=== PATIENT | female | born 1955 | race Caucasian/White ===

== ENCOUNTER 2018-12-02 05:39 | Inpatient (IN) | payer OTHER ==
[2018-11-15 13:13] LABS: HEMOGLOBIN 14.5 gm/dL (12.0-15.0); MCH 31.8 pg (26.0-34.0); MCHC 33.8 g/dL (28.0-37.0); MCV 94.1 fL (80.0-100.0); RBC 4.56 mil/uL (4.20-5.00); RDW 13.2 % (10.5-14.5); WBC 8.1 thou/uL (4.0-11.0)
[2018-11-15 13:21] LABS: URINE BILIRUBIN NEGATIVE (Negative); URINE BLOOD NEGATIVE (Negative); URINE CLARITY CLEAR; URINE COLOR YELLOW; URINE GLUCOSE-RANDOM* NEGATIVE (Negative); URINE KETONES NEGATIVE (Negative); URINE LEUKOCYTES-REFLEX NEGATIVE (Negative); URINE NITRITE-REFLEX NEGATIVE (Negative); URINE PROTEIN (DIPSTICK) NEGATIVE (Negative); URINE UROBILINOGEN 0.2 E.U./dl (0.2-1.0)
[2018-11-15 13:28] LABS: ALBUMIN 4.1 g/dL (3.4-5.0); CREATININE 0.8 mg/dL (0.6-1.0); POTASSIUM 4.5 mmol/L (3.5-5.1)
[2018-11-15 13:29] LABS: PROTIME 10.6 Seconds (9.3-11.4)
[2018-12-02] VITALS (17 sets, daily range): BP systolic 109–135; BP diastolic 61–76
[~2018-12-02] VITALS: Ht 162.6 cm; Wt 71.7 kg
[~2018-12-02 05:39] MED LIST: ASHWAGANDA PO; FISH OIL 1,0001 EAC1 PO; GLUCOSAMINE &1 EACH PO; TURMERIC500 M2 PO
--- NOTE | 2018-12-02 09:37 | O ---
[facility] [place] [address] OPERATIVE REPORT Name: ION VU Room #: 150-2 ADM IN M.R.#: [id number] Admission: 12/02/18 ������������������ Attend Phys: Kirby Arciniega MD Discharge: ������������������ Date of : 57 Report #: [id number] THIS REPORT FOR: //name// CC: SALLIE Arciniega Physician staff DATE OF SERVICE: 12/02/2018 PREOPERATIVE DIAGNOSIS: End-stage degenerative osteoarthritis, left knee. POSTOPERATIVE DIAGNOSIS: End-stage degenerative osteoarthritis, left knee. PROCEDURE: Left total knee arthroplasty. SURGEON: Kirby Arciniega M.D. INDICATIONS: This slender, healthy, active 63-year-old female has had multiple problems with the left knee in the past. She has had several surgical procedures with previous ACL reconstruction and arthroscopic debridement. 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 She has elected to go ahead with total knee replacement. DESCRIPTION OF PROCEDURE: The patient was taken to the operating room where she was placed under general anesthesia. Prophylactic intravenous antibiotics were administered. The left knee and leg were meticulously prepped and draped. A thigh tourniquet was applied and inflated to 300 mmHg. An anterior longitudinal skin incision was made. This was made through her old surgical scar, which was somewhat anterior lateral than midline. I did not feel that a new incision line near this would be seymour as I was concerned about blood supply and possible skin and tissue necrosis. This new skin incision in line with the old scar was still satisfactory and allowed adequate exposure. A medial parapatellar incision was made and the patella was reflected laterally. Marked degenerative change in all 3 compartments was noted. The Arias and Nephew knee system was utilized. Intramedullary guides were used on both the femur and the tibia. The femur was cut in 5 degrees of valgus and the tibia cut perpendicular to long axis of the bone, which allowed correction of the significant preoperative varus malalignment. The femur seemed best suited for a size 5 femoral component. The tibia was also best suited for a size 5 tibial component. A trial reduction using a 9 mm polyethylene insert resulted in good improvement in overall alignment and satisfactory range of motion and stability with full knee extension and flexion beyond 140 degrees. The patellar surface was resected and a 35 mm patellar button fit nicely with appropriate anchor holes created. The patella seemed to track nicely and appeared to be stable. The trial components were removed. The intramedullary canal was blocked with a [facility] [address] [address] OPERATIVE REPORT Name: ION VU Room #: 150-2 [facility]#: [id number] Admission: 12/02/18 ������������������ Attend Phys: Kirby Arciniega MD Discharge: ������������������ Date of : 57 Report #: [id number] bone block on both the femoral and tibial sides. She does have rather significant osteopenia and I felt cement technique on all three components would be necessary. The surfaces were thoroughly irrigated and dried. Methyl methacrylate cement was injected into the porous surface of the tibia. The Arias and Nephew size 5, Karen II, left nonporous tibial base plate was then inserted. This was impacted into position and seated nicely and appeared to be secure. Excess cement was removed from its margin. The 9 mm size 5 Legion cruciate retaining polyethylene liner was inserted and snapped into place. It seated nicely and appeared to be secure. The size 5 left cruciate retaining Legion femoral component was then inserted. Cement was used at the distal aspect at the anchor holes where the bone is quite soft. The component seemed to seat nicely and appeared to be secure. Excess cement was removed from around its margin. A 35 mm patellar button was inserted and secured with methyl methacrylate and appropriate anchor holes using a patellar clamp until the cement had hardened. Once the cement was firm, alignment, range of motion and stability were once again assessed and felt to be satisfactory. The knee demonstrated full knee extension and flexion to about 140 degrees. The patella tracked nicely and appears to be stable. The tourniquet was deflated after a total tourniquet time of 51 minutes. A single Hemovac was left in the wound exiting through a separate stab incision. The fascia was closed with multiple #1 Vicryl sutures. The very limited subcutaneous tissues were reapproximated with 0 Monocryl. The skin was closed with skin inés. A sterile dressing was applied. The patient was awakened and returned to recovery room in good condition. ��������������������������������������������� <ELECTRONICALLY SIGNED> ���������������������������������������� By: Kirby Arciniega MD ��������������������������������������������� 12/02/18 0937 [id number] Kirby Arciniega MD /nt
--- NOTE | 2018-12-02 15:21 | NUR ---
PT ADMITTED RELATED TO LT TOTAL KNEE REPLACEMENT. CM REVIEWED CHART AND SPOKE WITH CARE TEAM. CM MET WITH PT AT BEDSIDE THIS DAY. PT IS A&O X4. CM ROLE INTRODUCED. PT INDICATED SHE LIVES IN A HOUSE ALONE WITH 3 STEPS TO ENTER AND NO STEPS INSIDE. PT INDICATED SHE HAD BEEN INDEPEDNENT WITH GAIT AND ADLS VP PLATFORMS. PT INDICATED SHE HAS A FWW FOR HOME USE. PT INDICATED SHE HADN'T SPOKEN ABOUT HH VS. OP PT UPON DC YET. CM TO FOLLOW INDICATED WITH DC PLANNING.
--- NOTE | 2018-12-02 19:23 | NUR ---
ASSUMED CARE OF PATIENT APPROX. 1100, PT A&OX4, VSS, PAIN AT 8 AT HIGHEST IN LEFT KNEE. PT POST OP LEFT KNEE REPLACEMENT. PT VOIDED TODAY, HAS TOLERATED REGULAR DIET. PT HAS HEMOVAC, 200MS TAKEN OFF. NO SIGNS OF DISTRESS, FALL BUNDLE IN PLACE. WILL CONTINUE TO MONITOR.
[2018-12-03 04:23] VITALS: BP 105/64
[2018-12-03 05:38] LABS: HEMATOCRIT 30.2 % (37.0-47.0); HEMOGLOBIN 10.4 gm/dL (12.0-15.0); MCH 32.4 pg (26.0-34.0); MCHC 34.5 g/dL (28.0-37.0); MCV 93.9 fL (80.0-100.0); PLATELET COUNT 241 thou/uL (150-400); RBC 3.22 mil/uL (4.20-5.00); RDW 13.6 % (10.5-14.5); WBC 10.6 thou/uL (4.0-11.0)
--- NOTE | 2018-12-03 05:39 | NUR ---
Assumed care at 1845. Pt resting in bed. AOX4. VSS. Left knee dressing CDI. Emptied 250ml from Hemovac. Bilateral marly hose in place. Bupivacan auto infuser in place on left lower abdmn. Pt has been using bed brown. Hasnt worked with PT as of yet. IV on left FA with 1/2 NS @100. No identified needs at the moment. Will continue to monitor.
[2018-12-03 05:54] LABS: CALCIUM 8.2 mg/dL (8.5-10.1); CREATININE 0.8 mg/dL (0.6-1.0); MAGNESIUM 1.9 mg/dL (1.8-2.4); POTASSIUM 4.4 mmol/L (3.5-5.1)
[2018-12-03 07:22] VITALS: BP 100/52
[2018-12-03 07:43] LABS: ABSOLUTE NEUTROPHILS 7.7 thou/uL (1.4-8.2)
[2018-12-03 14:12] VITALS: BP 99/45
--- NOTE | 2018-12-03 16:17 | NUR ---
CARE TEAM INDICATED THAT PT IS MEDICALLY STABLE TO DISCHARGE HOME THIS DAY. PT HAD FWW FOR USE UPON DC. PT IS TO DO OP PT. NO OTHER CM INTERVENTION INDICATED AT THIS TIME. CASE CLOSED.
[2018-12-03 18:33] VITALS: BP 99/45
--- NOTE | 2018-12-03 19:36 | NUR ---
PT DISCHARGED HOME. PT A&OX4, VSS, PAIN IN LEFT KNEE MANAGED WITH MEDICATION. PT ABLE TO AMBULATE WITH STEADY GAIT WITH PHYSICAL THERAPY. HEMOVAC AND ON QUE PUMP DISCONTINUED PER ORDER. PATIENT HAS GRACIE DRESSING, THE SUCTION DEVICE CAME OFF, THIS NURSE RECIEVED INSTRUCTIONS FROM DOCTOR TO KEEP DRESSING IN PLACE. PT WENT HOME WITH JEREMY KHAN. PT AWARE TO WATCH FOR EXCESSIVE BLEEDING AND TO COME BACK IF SO. IV HAS BEEN REMOVED. PT IS AWARE TO FOLLOW UP WITH DOCTOR, CHANGE DRESSING DAILY, AND PRESCIPTION INFORMATION. NO SIGNS OF DISTRESS. DRESSING STILL INTACT ON KNEE. ALL BELONGINGS WITH PATIENT.
== END 2018-12-03 18:00 | disposition home or self-care (01) | DRG 470 ==
LOC: PRE 05:39 → TBA 05:52 → 4W 05:52 → PRE 10:33 → 4W 10:34 → PRE 10:46 → 4W 12-03 18:00
PROVIDERS: Nurse Practitioner; ADMIT Orthopaedic Surgery
PROC: 0SRD0J9 Replacement of Left Knee Joint with Synthetic Substitute, Cemented, Open Approach (ICD-10-PCS; principal; 2018-12-02)
DX: M17.12 Unilateral primary osteoarthritis, left knee (principal); Z79.899 Other long term (current) drug therapy; Z87.891 Personal history of nicotine dependence
CPT/HCPCS: 10047; 50010; 50101; 50415; 50954; 51130; 51225; 51412; 53364; 56525; 57095; 57104; 57180; 62110; 62900; 65075; 70005